=== PATIENT | male | born 1980 | race Two or more races ===

== ENCOUNTER → 2021-10-25 | Outpatient (CLI) | payer OTHER | END | disposition home or self-care (01) | LOC: NUCLEAR 07:33 | PROVIDERS: ATTEND Surgery | DX: K80.10 Calculus of gallbladder with chronic cholecystitis without obstruction (principal) | CPT/HCPCS: 78226; A9537; J2805 ==

== ENCOUNTER 2022-01-16 05:33 | Day surgery (SDC) | payer OTHER ==
[~2022-01-16 05:33] MED LIST: GLUMETZA500 MG PO; LOSARTA PO
== END 2022-01-16 14:00 | disposition home or self-care (01) ==
LOC: CIR.AMB 05:33
PROVIDERS: ATTEND Surgery
DX: K80.10 Calculus of gallbladder with chronic cholecystitis without obstruction (principal); Z91.013 Allergy to seafood; I10 Essential (primary) hypertension; E11.9 Type 2 diabetes mellitus without complications; G47.33 Obstructive sleep apnea (adult) (pediatric); Z79.84 Long term (current) use of oral hypoglycemic drugs